=== PATIENT | female | born 1955 | race Two or more races ===

== ENCOUNTER → 2024-05-19 | Outpatient (CLI) | payer MEDICAID, SELFPAY ==
[2024-05-19 10:21] LABS: Basophils % (Auto) 0 % (0-2.5); Eosinophils # (Auto) 0.1 Thou/mm3 (0.0-0.5); Eosinophils % (Auto) 1 % (0-10); Hematocrit 38.6 % (36.0-46.0); Hemoglobin 12.5 g/dL (12.0-16.0); Immature Granulocytes % (Auto) 0 % (0-0); Immature Granulocytes Auto 0.02 Thou/mm3 (0.00-0.00); Lymphocytes # (Auto) 1.4 Thou/mm3 (1.0-4.8); Lymphocytes % (Auto) 27 % (10-50); Mean Corpuscular HGB Conc 32.4 g/dl (31.0-37.0); Mean Corpuscular Hemoglobin 28.8 pg (25.0-35.0); Mean Corpuscular Volume 89 fL (80-100); Monocytes # (Auto) 0.6 Thou/mm3 (0.0-0.8); Monocytes % (Auto) 12 % (0-12); Neutrophils % (Auto) 59 % (37-80); Nucleated Red Blood Cell % 0 /100 WBC (0); Platelet Count 142 Thou/mm3 (140-440); RDW Standard Deviation 42.8 fL (36.4-46.3); Red Blood Count 4.34 Miln/mm3 (4.00-5.20)
[2024-05-19 11:03] LABS: Alanine Aminotransferase 15 U/L (10-49); Albumin, Serum 4.1 gm/dL (3.4-4.8); Albumin/Globulin Ratio 1.6 (1.2-2.2); Alkaline Phosphatase 67 U/L (46-116); Anion Gap 9 (7-16); Aspartate Amino Transferase 20 U/L (0-34); BUN/Creatinine Ratio 25 Ratio (12-20); Bilirubin,Total 0.4 mg/dL (0.3-1.2); Blood Urea Nitrogen 15 mg/dL (9-23); Calcium 8.9 mg/dL (8.3-10.6); Calcium (Corrected) 8.9 mg/dL (8.5-10.1); Carbon Dioxide 25.4 mMol/L (20.0-31.0); Chloride 104 mMol/L (98-107); Creatinine (Component) 0.6 mg/dL (0.6-1.3); Globulin 2.5 gm/dL (2.3-3.5); Glucose 93 mg/dL (74-106); Osmolality,Calculated 276 (275-295); Potassium 3.7 mMol/L (3.4-5.1); Sodium 138 mMol/L (136-145); Total Protein 6.6 gm/dL (5.7-8.2); eGFR > 60 See Note
--- NOTE | 2024-05-19 14:00 | XR_ITS ---
Examination: MRI pelvis with intravenous contrast. MRI pelvis without intravenous contrast. Date and time of exam: 2023 1454 hours Comparison June 07, 2017 INDICATIONS: Pelvic sonogram April 07, 2024 left complex ovarian cyst 5.7 x 4.3 x 4.6 cm Technique: Multiple axial, sagittal and coronal sections of the pelvis obtained. Transverse images, TR 6020, TE 107. T1 weighted transverse images, TR 582, TE 9.5. T2-weighted sagittal images, TR 4000, TE 105. T2-weighted sagittal images, TR 4000, TE 5. Coronal images, TR 4210, TE 107. Axial and coronal images are obtained post 13 cc intravenous injection, gadolinium. Findings: Uterus 6 x 4 x 4 cm Endometrial stripe is not thickened Left ovarian cystic mass 5.6 x 4.6 cm with no abnormal enhancement or mural thickening Urinary bladder intact Right ovary is not enlarged IMPRESSION: Benign-appearing left ovarian cyst 5.6 x 4.6 cm, recommend 6 month follow-up pelvic sonography
== END | disposition home or self-care (01) ==
LOC: SMRI 05-21 07:06
PROVIDERS: PCP Family Medicine; Referring Provider Nurse Practitioner Family; Visit Provider Nurse Practitioner Family
DX: N83.202 Unspecified ovarian cyst, left side (principal); C50.912 Malignant neoplasm of unspecified site of left female breast
CPT/HCPCS: 36415; 72197; 80053; 85025; A9579

== ENCOUNTER 2024-07-16 13:32 | Outpatient (RCR) | payer MEDICAID, SELFPAY | END 2024-07-17 23:59 | disposition home or self-care (01) | LOC: SCTC 13:32 | PROVIDERS: Visit Provider Nurse Practitioner Family | DX: C50.812 Malignant neoplasm of overlapping sites of left female breast (principal); Z17.0 Estrogen receptor positive status [ER+]; Z17.21 Progesterone receptor positive status; Z17.32 Human epidermal growth factor receptor 2 negative status; Z90.12 Acquired absence of left breast and nipple; Z92.3 Personal history of irradiation; Z79.810 Long term (current) use of selective estrogen receptor modulators (SERMs); M81.0 Age-related osteoporosis without current pathological fracture; R91.8 Other nonspecific abnormal finding of lung field; N83.202 Unspecified ovarian cyst, left side | CPT/HCPCS: 99212; G0463 ==

== ENCOUNTER → 2024-08-26 | Outpatient (CLI) | payer MEDICAID, SELFPAY ==
--- NOTE | 2024-08-26 16:30 | XR_ITS ---
Examination: CT chest, without intravenous contrast. Sagittal and coronal 2-D reconstructions. Exam date and time: August 26, 2024 1613 hrs. Comparison March 12, 2024 Indications: Diagnosis malignant neoplasm left female breast lumpectomy 2019, coughing 5 days, pulmonary nodules on CT chest 03/12/2024 CTDI:vol (mGy) 12.7 DLP: (mGycm) 400 Technique: Multiple 3.0 mm axial sections of the chest to been obtained. Bone and lung density settings are obtained. Sagittal and coronal 2-D reconstructions have been obtained. Low dose protocols were performed. One or more of the following dose reduction techniques were used; automated exposure control, adjustment of the mA and/or KV according to patient size, use of iterative reconstruction technique. Findings: No thoracic aortic aneurysm dilatation Pulmonary artery segments are not enlarged. No paratracheal tracheobronchial or bronchopulmonary adenopathy No new pulmonary nodules No pneumonia or pulmonary edema Fatty liver Moderate left renal parenchymal scar formation Significant osteopenia Impression: Stable pulmonary nodules compared with 03/12/2024, no new pulmonary nodules
== END | disposition home or self-care (01) ==
LOC: CCTX 16:29
PROVIDERS: PCP Family Medicine; Referring Provider Nurse Practitioner Family; Visit Provider Nurse Practitioner Family
DX: R91.8 Other nonspecific abnormal finding of lung field (principal); C50.912 Malignant neoplasm of unspecified site of left female breast
CPT/HCPCS: 71250

== ENCOUNTER 2024-09-16 10:45 | Outpatient (AMB) | payer MEDICAID, SELFPAY ==
--- NOTE | 2024-09-16 10:48 | AMB.GYNCLNOT ---
Vital Signs 09/16/24 10:53 Height 1.52 m Height Method Stated Weight 72.235 kg Weight Measurement Method Standing Scale BMI 31.1 BP 145/83 H Blood Pressure Source Automatic Cuff Blood Pressure Location Left Upper Arm Position Sitting Respiration 14 Pulse 71 Pulse Source Monitor Temp 97.5 F Temp Source Oral Pulse Oximetry (%) 98 Oxygen Delivery Method Room Air Allergies/Home Meds Allergies & Medications Allergies No Known Allergies Allergy (Verified 09/30/24 08:56) Medication Reconciliation losartan 100 mg-hydrochlorothiazide 12.5 mg tablet 1 tab PO DAILY 08/03/21 [History Confirmed 09/30/24] Intake Visit Data Collection New Patient or Established: Established Patient (seen at [facility] within 3 years) Reason for Visit:: LEFT OVARIAN CYST Seen by Clinical Staff ONLY (RN/MA): No Fpga Design Engineer Required: No Do You Feel Safe at Home: Yes Authorities Contacted: N/A PCP or OBGYN visit in last 3 months: Yes Hx Now: No Are you currently on any form of Control: No Pain Present Currently: No Pain Scale Used: Adan-Coleman/Numerical Pain scale:: 0 Smoking Status Smoking Status: Never smoker 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 1. Little interest or pleasure in doing things: not at all 2. Feeling down, depressed, or hopeless: not at all Total score: 0 PHQ-9 3. Trouble falling or staying asleep, or sleeping too much: Not at all 4. Feeling tired or having little energy: Not at all 5. Poor appetite or overeating: Not at all 6. Feeling bad about yourself - or that you are a failure or have let yourself or your family down: Not at all 7. Trouble concentrating on things, such as reading the newspaper or watching television: Not at all 8. Moving or speaking so slowly that other people could have noticed? - Or the opposite - being so fidgety or restless that you have been moving around a lot more than usual: not at all 9. Thoughts that you would be better off or of hurting yourself in some way: Not at all Total score: 0 Source: Developed by Drs. Vel Angelo, Lesly Daniels, Gaston Kohler and colleagues, with an educational rosalva from [employer]. Depression screen completed yes Social History Living Situation History Lives With: Family Housing: House Tobacco History Smoking Status: Never smoker Second Hand Smoke Exposure: No Alcohol History Alcohol Intake: Never Domestic Abuse History Do You Feel Safe at Home: Yes Past Medical History Past Medical History Have you ever been diagnosed with any of the following: Neurological Problems Cerebrovascular Accident (CVA): No Transient Ischemic Attacks (TIA): No Dementia: No Alzheimer's Disease: No Parkinson's Disease: No Brain Tumor: No Meningitis: No Seizures: No Guillain-[place] Syndrome: No Rodriguez's Palsy: No Cardiology Problems Myocardial Infarction: No Cardiac Arrhythmia: No Atrial Fibrillation: No Angina: No Congestive Heart Failure: No Edema: No Cellulitis: No Hypertension: Yes Varicose Veins: No Respiratory Problems Chronic Obstructive Pulmonary Disease (COPD): No Asthma: No Pneumonia: No Tuberculosis: No Sleep Apnea: No Stomache/Intestinal Problems Liver Cancer: No Hepatitis: No Cirrhosis: No Pancreatic Cancer: No Pancreatitis: No Celiac Disease: No Gall Bladder Disease: No Genital/Urinary Problems Chronic Kidney Disease: No Renal Disease: No Kidney Stones: Yes Dialysis: No Reproductive Problems Breast Cancer: Yes (Left for this procedure) Previous Pregnancies: Yes (x6) Musculoskeletal Problems Muscular Dystrophy: No Myasthenia Gravis: No Marfan's Syndrome: No Bone Cancer: No Arthritis: No Scoliosis: No Fractures: No Head,Eye,Nose,Throat Problems Cataracts: No Blind: No Retinal Detachment: No Macular Degeneration: No Chronic Ear Infections: No Deafness: Yes Eye Prosthesis: No Endocrine Problems Diabetes Mellitus Type 1: No Diabetes Mellitus Type 2: No Kimberly's Syndrome: No Hoskins's Disease: No Blood Problems Anemia: No Leukemia: No Hemophilia: No Thalassemia: No Sickle Cell Disease: No Clotting Problems: No Psychologic Problems Depression: No Anxiety: No Other Problems Hospitalization: No Down Syndrome: No Autism: No Developmental Delay: No Shingles: No Falls: No Blood Transfusions: No Blood Transfusion Reaction: No Anesthesia Reactions: No Chemotherapy: No Radiation Therapy: No Chicken Pox: Yes Measles: No Mumps: No Surgical History Angioplasty: No Appendectomy: No Bariatric Surgery: No Breast Surgery: Yes Cancer Surgery: No Carotid Endarterectomy: No Cholecystectomy: No History of Present Illness HPI Narrative Cami Thornton, a patient with a history of breast cancer, presents for follow-up of an incidental finding on a pelvic ultrasound. The patient completed chemotherapy for breast cancer approximately one year ago and is currently under the care of an oncologist for ongoing monitoring. A pelvic ultrasound performed in May revealed a left ovarian cyst measuring 5.6 cm by 4.6 cm. Given the patient's age and history of breast cancer, this finding warrants further investigation to rule out malignancy. The patient is asymptomatic and appears to be here for routine follow-up rather than due to any specific complaints or concerns. The patient continues to receive regular follow-up care from her oncologist for her breast cancer history. There are no reported changes in her overall health status or new symptoms since her last visit. Review of Systems Review of Systems Systems Reviewed: All systems reviewed, normal except as documented Exam General General Appearance: alert, in no apparent distress and healthy appearing Head Head exam: atraumatic Neck Neck exam: Present normal inspection and trachea midline Chest Chest inspection: Present normal inspection and symmetric chest wall rise External exam: Present normal external exam; Absent tenderness Neuro Neurological exam: Present oriented X3 Psych Psychiatric exam: Present normal affect and normal mood Results Objective Imaging: - Pelvic ultrasound (May 2024): - Uterus: Normal - Endometrium: Normal - Left ovary: Cyst measuring 5.6 cm x 4.6 cm - Right ovary: Not mentioned Assessment & Plan Diagnosis / Problem List (1) Left ovarian cyst: Status: Acute Plan Cami Thornton, female patient with history of breast cancer, presents for follow-up of ovarian cyst found on recent pelvic ultrasound. Left ovarian cyst Assessment: Pelvic ultrasound in May revealed a left ovarian cyst measuring 5.6 cm x 4.6 cm. Given the patient's age and history of breast cancer, this cyst size (>5 cm) is concerning and warrants further evaluation to rule out malignancy. The potential relationship between ovarian and breast cancer necessitates careful monitoring and investigation. Plan: - Order tumor marker blood tests to screen for potential ovarian malignancy - Follow up in 1-2 weeks to review blood test results - If blood tests are negative: - Schedule follow-up pelvic ultrasound in 6 months (November) - Continue surveillance with pelvic ultrasounds every 6 months - If blood tests are positive: - Discuss surgical intervention for cyst removal and histopathological examination - Continue follow-up with oncologist for breast cancer surveillance Advanced Care Planning Advance care planning discussed with:: other Office Procedures OB Clinic LOC & Office Proc's Nursing/Assessment Patient Status: Established Patient OB Clinic Nursing Assessment: Medication Reconciliation, Update PMH in EMR and Vital Signs OB Clinic Coordination of Care: Complex Care and Chronic Disease 1-5, Consent,records obtained, informed consent, Education Simp Pt/Fam, Lab and Imaging orders, Results/Orders obtained and Staff clarify orders Established Patient Charge Established Patient Point Assignment: 105 Established Patient Point Charge: EP Level 3 (80-115)
[2024-09-16 10:53] VITALS: BP 145/83; PULSE 71; RESP 14; TEMP 36.4; O2SAT 98; BMI 31.1
== END 2024-09-16 10:58 | disposition home or self-care (01) ==
LOC: HODSOBC 10:45
PROVIDERS: Supervising Provider Obstetrics & Gynecology; Visit Provider Obstetrics & Gynecology
DX: N83.202 Unspecified ovarian cyst, left side (principal); Z85.3 Personal history of malignant neoplasm of breast
CPT/HCPCS: 99213; G0463

== ENCOUNTER 2024-09-30 08:49 | Outpatient (AMB) | payer MEDICAID, SELFPAY ==
[2024-09-30 08:55] VITALS: BP 162/74; PULSE 64; RESP 12; TEMP 36.4; O2SAT 95; BMI 31.0
--- NOTE | 2024-09-30 08:55 | AMB.GYNCLNOT ---
Vital Signs 09/30/24 08:55 Height 1.52 m Height Method Stated Weight 71.724 kg Weight Measurement Method Standing Scale BMI 31.0 BP 162/74 H Blood Pressure Source Automatic Cuff Blood Pressure Location Left Upper Arm Position Sitting Respiration 12 Pulse 64 Pulse Source Monitor Temp 97.5 F Temp Source Oral Pulse Oximetry (%) 95 Oxygen Delivery Method Room Air Allergies/Home Meds Allergies & Medications Allergies No Known Allergies Allergy (Verified 09/30/24 08:56) Medication Reconciliation losartan 100 mg-hydrochlorothiazide 12.5 mg tablet 1 tab PO DAILY 08/03/21 [History Confirmed 09/30/24] Intake Visit Data Collection New Patient or Established: Established Patient (seen at [facility] within 3 years) Reason for Visit:: DISCUSS LAB RESULTS Seen by Clinical Staff ONLY (RN/MA): No State Comptroller Required: Yes State Comptroller's name/title: JUVENAL BAINCHI Do You Feel Safe at Home: Yes Authorities Contacted: N/A PCP or OBGYN visit in last 3 months: Yes Date of Last PCP or OBGYN visit: 09/16/24 Hx Now: No Are you currently on any form of Control: No Pain Present Currently: No Pain Scale Used: Adan-Coleman/Numerical Pain scale:: 0 Smoking Status Smoking Status: Never smoker 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 1. Little interest or pleasure in doing things: not at all 2. Feeling down, depressed, or hopeless: not at all Total score: 0 PHQ-9 3. Trouble falling or staying asleep, or sleeping too much: Not at all 4. Feeling tired or having little energy: Not at all 5. Poor appetite or overeating: Not at all 6. Feeling bad about yourself - or that you are a failure or have let yourself or your family down: Not at all 7. Trouble concentrating on things, such as reading the newspaper or watching television: Not at all 8. Moving or speaking so slowly that other people could have noticed? - Or the opposite - being so fidgety or restless that you have been moving around a lot more than usual: not at all 9. Thoughts that you would be better off or of hurting yourself in some way: Not at all Total score: 0 Source: Developed by Drs. Vel Angelo, Lesly Daniels, Gaston Kohler and colleagues, with an educational rosalva from [employer]. Depression screen completed yes Social History Living Situation History Lives With: Family Housing: House Tobacco History Smoking Status: Never smoker Second Hand Smoke Exposure: No Alcohol History Alcohol Intake: Never Domestic Abuse History Do You Feel Safe at Home: Yes Past Medical History Past Medical History Have you ever been diagnosed with any of the following: Neurological Problems Cerebrovascular Accident (CVA): No Transient Ischemic Attacks (TIA): No Dementia: No Alzheimer's Disease: No Parkinson's Disease: No Brain Tumor: No Meningitis: No Seizures: No Guillain-[place] Syndrome: No Rodriguez's Palsy: No Cardiology Problems Myocardial Infarction: No Cardiac Arrhythmia: No Atrial Fibrillation: No Angina: No Congestive Heart Failure: No Edema: No Cellulitis: No Hypertension: Yes Varicose Veins: No Respiratory Problems Chronic Obstructive Pulmonary Disease (COPD): No Asthma: No Pneumonia: No Tuberculosis: No Sleep Apnea: No Stomache/Intestinal Problems Liver Cancer: No Hepatitis: No Cirrhosis: No Pancreatic Cancer: No Pancreatitis: No Celiac Disease: No Gall Bladder Disease: No Genital/Urinary Problems Renal Disease: No Kidney Stones: Yes Dialysis: No Reproductive Problems Breast Cancer: Yes (Left for this procedure) Previous Pregnancies: Yes (x6) Musculoskeletal Problems Muscular Dystrophy: No Myasthenia Gravis: No Marfan's Syndrome: No Bone Cancer: No Arthritis: No Scoliosis: No Fractures: No Head,Eye,Nose,Throat Problems Cataracts: No Blind: No Retinal Detachment: No Macular Degeneration: No Chronic Ear Infections: No Deafness: Yes Eye Prosthesis: No Endocrine Problems Diabetes Mellitus Type 1: No Diabetes Mellitus Type 2: No [place]'s Syndrome: No [place] Hall's Disease: No Blood Problems Anemia: No Leukemia: No Hemophilia: No Thalassemia: No Sickle Cell Disease: No Clotting Problems: No Psychologic Problems Depression: No Anxiety: No Other Problems Hospitalization: No Down Syndrome: No Autism: No Developmental Delay: No Shingles: No Falls: No Blood Transfusions: No Blood Transfusion Reaction: No Anesthesia Reactions: No Chemotherapy: No Radiation Therapy: No Chicken Pox: Yes Measles: No Mumps: No Surgical History Angioplasty: No Appendectomy: No Bariatric Surgery: No Breast Surgery: Yes Cancer Surgery: No Carotid Endarterectomy: No Cholecystectomy: No History of Present Illness HPI Narrative Cami Thornton, a patient with a history of breast cancer who completed chemotherapy one year ago, presents for follow-up of an incidentally discovered left ovarian cyst. The cyst was initially found on a pelvic ultrasound, measuring 5.6 centimeters by 4.6 centimeters. Due to her history of breast cancer, her oncologist referred her to rule out any possible ovarian malignancy. The patient has been undergoing regular follow-up care, including tumor marker testing and ultrasound surveillance. She has no reported symptoms related to the ovarian cyst. The patient's adherence to the recommended follow-up plan has been good, as evidenced by her attendance at this appointment for blood tests to review tumor markers. Laboratory, Imaging, and Diagnostic Test Results - CEA: 2.4 - CA125: 11.6 - Pelvic ultrasound: Left ovarian cyst measuring 5.6 cm x 4.6 cm Review of Systems Review of Systems Systems Reviewed: All systems reviewed, normal except as documented Exam General Limitations: no limitations General Appearance: alert, in no apparent distress, comfortable, cooperative, healthy appearing, well developed and well groomed Head Head exam: atraumatic, normocephalic and normal inspection Chest Chest inspection: Present normal inspection and symmetric chest wall rise Abdominal Abdominal exam: Present soft and normal bowel sounds Psych Psychiatric exam: Present normal affect and normal mood Skin Skin exam: Present warm, dry, intact and normal color Assessment & Plan Diagnosis / Problem List (1) Cyst of ovary: Status: Acute Plan Cami Thornton, female patient with history of breast cancer, presenting for review of tumor markers following incidental finding of left ovarian cyst on pelvic ultrasound. Left ovarian cyst Assessment: Patient has an incidental finding of a left ovarian cyst measuring 5.6 cm x 4.6 cm on pelvic ultrasound. Given her history of breast cancer (completed chemotherapy one year ago), she was referred by her oncologist to rule out potential ovarian malignancy. Tumor markers, including CEA (2.4) and CA125 (11.6), are within normal limits, suggesting a low likelihood of ovarian cancer. Plan: - Continue with 6-monthly ultrasound surveillance as previously discussed - Schedule next ultrasound in November-December (6 months from the last one) - Follow-up appointment in November to review ultrasound results Advanced Care Planning Advance care planning discussed with:: child Office Procedures OB Clinic LOC & Office Proc's Nursing/Assessment Patient Status: Established Patient OB Clinic Nursing Assessment: Medication Reconciliation, Update PMH in EMR and Vital Signs OB Clinic Coordination of Care: Complex Care and Chronic Disease 1-5, Consent,records obtained, informed consent, Education Simp Pt/Fam, Results/Orders obtained and Staff clarify orders Established Patient Charge Established Patient Point Assignment: 90 Established Patient Point Charge: EP Level 3 (80-115)
== END 2024-09-30 09:24 | disposition home or self-care (01) ==
LOC: HODSOBC 08:49
PROVIDERS: PCP Obstetrics & Gynecology; Referring Provider Obstetrics & Gynecology; Supervising Provider Obstetrics & Gynecology; Visit Provider Obstetrics & Gynecology
DX: N83.202 Unspecified ovarian cyst, left side (principal); Z85.3 Personal history of malignant neoplasm of breast; Z92.21 Personal history of antineoplastic chemotherapy
CPT/HCPCS: 99213; G0463

== ENCOUNTER 2024-10-08 14:33 | Outpatient (RCR) | payer MEDICAID, SELFPAY | END 2024-10-14 23:59 | disposition home or self-care (01) | LOC: SCTC 14:33 | PROVIDERS: Visit Provider Nurse Practitioner Family | DX: M81.0 Age-related osteoporosis without current pathological fracture (principal); C50.812 Malignant neoplasm of overlapping sites of left female breast; Z17.0 Estrogen receptor positive status [ER+]; Z17.21 Progesterone receptor positive status; Z17.32 Human epidermal growth factor receptor 2 negative status; Z90.12 Acquired absence of left breast and nipple; Z79.810 Long term (current) use of selective estrogen receptor modulators (SERMs) | CPT/HCPCS: 96372; J0897 ==

== ENCOUNTER 2024-10-21 13:59 | Outpatient (RCR) | payer MEDICAID, SELFPAY | END 2024-11-14 23:59 | disposition home or self-care (01) | LOC: SCTC 13:59 | PROVIDERS: Visit Provider Nurse Practitioner Family | DX: C50.812 Malignant neoplasm of overlapping sites of left female breast (principal); Z79.810 Long term (current) use of selective estrogen receptor modulators (SERMs); Z17.0 Estrogen receptor positive status [ER+]; Z17.21 Progesterone receptor positive status; Z17.32 Human epidermal growth factor receptor 2 negative status; Z90.12 Acquired absence of left breast and nipple; Z92.3 Personal history of irradiation; M81.0 Age-related osteoporosis without current pathological fracture; I10 Essential (primary) hypertension | CPT/HCPCS: 99212; G0463 ==

== ENCOUNTER → 2024-11-23 | Outpatient (CLI) | payer MEDICAID, SELFPAY ==
--- NOTE | 2024-11-23 08:00 | XR_ITS ---
EXAMINATION: PET/CT FUSION SKULL TO THIGH EXAM DATE AND TIME: November 23, [address] chest August 26, 2024, CT chest March 12, 2024 INDICATIONS: Diagnosis left breast cancer post treatment restaging CTDI:vol (mGy) 6.76 DLP: (mGycm) 533.84 PROCEDURE: 16.22 mCi FDG was administered intravenously To allow for distribution and uptake of radiotracer, the patient was allowed to rest quietly in a shielded room. Imaging was performed on an integrated 16-slice PET/CT scanner, with scanning from the skull base to the mid thigh. Serum blood glucose at the time of the injection was measured 95 mg/dL. CT scanning was performed without oral or intravenous contrast material. FINDINGS: Head and Neck: There is no dayanna hypermetabolism in the neck. The visualized portions of the brain are normal in appearance on CT. Chest: There is no dayanna hypermetabolism in the chest. Non hypermetabolic 4 mm pulmonary nodule right middle lobe Posttreatment changes left breast Abdomen and Pelvis: There is no dayanna hypermetabolism in retroperitoneal or pelvic chains. The spleen is normal in size and FDG avidity. Musculoskeletal: Marrow uptake is within normal range. IMPRESSION: Non hypermetabolic 4 mm pulmonary nodule right middle lobe, noted on the CT chest study August 26, 2024, recommend 6 month follow-up CT chest without contrast
== END | disposition home or self-care (01) ==
LOC: CDIM 07:25
PROVIDERS: Referring Provider Nurse Practitioner Family; Visit Provider Nurse Practitioner Family
DX: R91.1 Solitary pulmonary nodule (principal); C50.912 Malignant neoplasm of unspecified site of left female breast
CPT/HCPCS: 78815; A9552

== ENCOUNTER 2024-11-25 14:00 | Outpatient (RCR) | payer MEDICAID, SELFPAY | END 2024-12-14 23:59 | disposition home or self-care (01) | LOC: SCTC 14:00 | PROVIDERS: PCP Family Medicine; Referring Provider Nurse Practitioner Family; Visit Provider Nurse Practitioner Family | DX: C50.812 Malignant neoplasm of overlapping sites of left female breast (principal); Z17.0 Estrogen receptor positive status [ER+]; Z17.21 Progesterone receptor positive status; Z17.32 Human epidermal growth factor receptor 2 negative status; Z90.12 Acquired absence of left breast and nipple; Z92.3 Personal history of irradiation; Z79.810 Long term (current) use of selective estrogen receptor modulators (SERMs); R91.1 Solitary pulmonary nodule; M81.0 Age-related osteoporosis without current pathological fracture; I10 Essential (primary) hypertension | CPT/HCPCS: 99212; G0463 ==

== ENCOUNTER → 2025-01-05 | Outpatient (CLI) | payer MEDICAID, SELFPAY ==
--- NOTE | 2025-01-05 16:30 | XR_ITS ---
Examination: CT chest, without intravenous contrast. Sagittal and coronal 2-D reconstructions. Exam date and time: January 05, 2025, [address] chest without contrast August 26, 2024, PET CT scan November 23, 2024 INDICATIONS: Diagnosis left breast cancer, pulmonary nodules on CT chest August 26, 2024 CTDI:vol (mGy) 10.6 DLP: (mGycm) 378 Technique: Multiple 3.0 mm axial sections of the chest to been obtained. Bone and lung density settings are obtained. Sagittal and coronal 2-D reconstructions have been obtained. Low dose protocols were performed. One or more of the following dose reduction techniques were used; automated exposure control, adjustment of the mA and/or KV according to patient size, use of iterative reconstruction technique. Findings: No thoracic aortic aneurysm dilatation Pulmonary artery segments are not enlarged. No paratracheal tracheobronchial or bronchopulmonary adenopathy Stable subcentimeter nodules compared with August 26, 2024, no new pulmonary nodules No pneumonia or pulmonary edema Posttreatment changes left breast No axillary lymphadenopathy Fatty infiltration throughout the liver Contracted gallbladder Atrophic left kidney, no hydronephrosis Prominent osteopenia IMPRESSION: Stable pulmonary nodules compared with August 26, 2024, no new pulmonary nodules
== END | disposition home or self-care (01) ==
LOC: CCTX 16:36
PROVIDERS: PCP Family Medicine; Referring Provider Nurse Practitioner Family; Visit Provider Nurse Practitioner Family
DX: R91.8 Other nonspecific abnormal finding of lung field (principal)
CPT/HCPCS: 71250

== ENCOUNTER 2025-01-14 08:26 | Outpatient (RCR) | payer MEDICAID, SELFPAY | END 2025-01-14 23:59 | disposition home or self-care (01) | LOC: SCTC 08:26 | PROVIDERS: PCP Family Medicine; Referring Provider Family Medicine; Visit Provider Nurse Practitioner Family | DX: C50.912 Malignant neoplasm of unspecified site of left female breast (principal); C50.812 Malignant neoplasm of overlapping sites of left female breast; Z17.0 Estrogen receptor positive status [ER+]; Z17.21 Progesterone receptor positive status; Z17.32 Human epidermal growth factor receptor 2 negative status; Z90.12 Acquired absence of left breast and nipple; Z92.3 Personal history of irradiation; Z79.810 Long term (current) use of selective estrogen receptor modulators (SERMs); R91.1 Solitary pulmonary nodule; M81.0 Age-related osteoporosis without current pathological fracture; I10 Essential (primary) hypertension | CPT/HCPCS: 36415 ==

== ENCOUNTER → 2025-05-04 | Outpatient (CLI) | payer MEDICAID, SELFPAY ==
--- NOTE | 2025-05-04 09:45 | XR_ITS ---
Examination: Screening digital mammography, bilateral Computer aided detection 3-D breast Tomosynthesis, bilateral Date and time of exam: May 04, 2025, 1013 hours, compared to mammograms dating to November 20, 2022 Indication: Screening Technique: Nonmagnified MLO, CC views of the breasts to been obtained, reconstructed from 3-D Tomosynthesis images. R2 computer aided detection program utilized for evaluation of suspicious masses and/or abnormal calcifications. 3-D Tomosynthesis images obtained. Findings: Scattered areas of fibroglandular density. Scarring in the left breast stable consistent with patient's history treated left breast cancer 2019 Breast biopsy marker nipple level left breast on the cc view Impression: BI-RADS category II: Benign Findings. Recommend 1 year follow-up mammogram.
== END | disposition home or self-care (01) ==
LOC: CDIM 09:52
PROVIDERS: Referring Provider Nurse Practitioner Family; Visit Provider Nurse Practitioner Family
DX: Z12.31 Encounter for screening mammogram for malignant neoplasm of breast (principal); R92.323 Mammographic fibroglandular density, bilateral breasts; C50.912 Malignant neoplasm of unspecified site of left female breast
CPT/HCPCS: 77063; 77067

== ENCOUNTER 2025-05-27 10:57 | Outpatient (RCR) | payer MEDICAID, SELFPAY | END 2025-06-16 23:59 | disposition home or self-care (01) | LOC: SCTC 10:57 | PROVIDERS: PCP Family Medicine; Referring Provider Nurse Practitioner Family; Visit Provider Nurse Practitioner Family | DX: C50.812 Malignant neoplasm of overlapping sites of left female breast (principal); Z17.0 Estrogen receptor positive status [ER+]; Z17.21 Progesterone receptor positive status; Z17.32 Human epidermal growth factor receptor 2 negative status; Z90.12 Acquired absence of left breast and nipple; Z79.810 Long term (current) use of selective estrogen receptor modulators (SERMs); R91.1 Solitary pulmonary nodule; M81.0 Age-related osteoporosis without current pathological fracture | CPT/HCPCS: 99212; G0463 ==